=== PATIENT | male | born 1980 | race Caucasian/White ===

== ENCOUNTER 2017-03-05 20:01 | Emergency (ER) | payer OTHER ==
[~2017-03-05] VITALS: Ht 185.4 cm; Wt 104.0 kg
--- NOTE | 2017-03-05 20:19 | PHYS DOC ---
Adult General Chief Complaint Chief Complaint: HYPERTENSION HPI HPI Patient is a 36 year old M who presents with headache and chest pain. Patient states for the past 2 weeks he's had elevated blood pressures with associated headaches and chest pain off and on. Patient states today's chest pain got worse central in nature nonradiating. Patient denies any shortness of breath. Patient denies any fevers. Patient states he smokes however denies any diabetes , hyperlipidemia, history of DVTs and borderline hypertension Review of Systems Review of Systems GEN: Denies fevers, chills, sweats HEENT: Denies blurred vision, sore throat CV: chest pain RESP: Denies shortness of air, cough GI: Denies n/v/d NEURO: Headache MSK: Denies weakness, joint pain/swelling Physical Exam Physical Exam GEN.: No apparent distress. Alert and oriented. HEENT: Head is normocephalic, atraumatic NECK: Supple. LUNGS: CTAB. HEART: RRR, S1, S2 present. Peripheral pulses intact ABDOMEN: Soft, nontender. Positive bowel sounds. EXTREMITIES: Without any cyanosis. NEUROLOGIC: Normal speech, normal tone PSYCHIATRIC: Normal affect, normal mood. SKIN: No ulcerations EKG EKG 2031: EKG shows normal sinus rhythm rate of 87 no STEMI [] Radiology/Procedures Radiology/Procedures CT head: NAD CTA chest: IMPRESSION: 1. No pulmonary embolism. 2. Left ventricular dilatation in a pattern suggesting apical dysmotility. Correlate with other clinical data. 3. Bronchial wall thickening indicates acute or chronic bronchitis. 4. Mild pulmonary edema versus atelectasis.[] Course & Med Decision Making Course & Med Decision Making Pertinent Labs and Imaging studies reviewed. (See chart for details) ED course: Patient was seen and examined upon arrival cardiac workup along with a CT angiogram the chest and CT of the head without contrast was ordered 2149: Updated patient on CT results and plan to admit 2202: Discussed CC/HP/PMH with Dr. Garrison and recommends transfer to [facility] for further cardiac workup 2210: Discussed CC/HP/PMH with Dr. Wing and recommends admit at [facility] with cardiology on consult [] Dragon Disclaimer Dragon Disclaimer This chart was dictated in whole or in part using Voice Recognition software in a busy, high-work load, and often noisy Emergency Department environment. It may contain unintended and wholly unrecognized errors or omissions. Departure Departure: Impression: Primary Impression: Chest pain Additional Impression: Dilated cardiomyopathy Disposition: 02 XFER SHT-TRM HOSP Admitting Physician: Other (Dr. Wing) Condition: STABLE Problem Qualifiers Primary Impression: Chest pain Chest pain type: unspecified Qualified Codes: R07.9 - Chest pain, unspecified FAWN BRUCE DO Mar 05, 2017 20:19
[2017-03-05 20:41] VITALS: BP 162/101
[2017-03-05 20:52] LABS: BASO # 0.1 x10^3/uL (0.0-0.2); BASO % 1 % (0-3); EOS # 0.2 x10^3/uL (0.0-0.7); EOS % 2 % (0-3); HEMATOCRIT 43.9 % (39.0-53.0); HEMOGLOBIN 15.3 g/dL (13.0-17.5); LYMPH # 2.3 x10^3/uL (1.0-4.8); LYMPH % 24 % (24-48); MEAN CORPUSCULAR HEMOGLOBIN 29 pg (25-35); MEAN CORPUSCULAR HGB CONC 35 g/dL (31-37); MEAN CORPUSCULAR VOLUME 84 fL (79-100); MONO # 0.6 x10^3/uL (0.0-1.1); MONO % 6 % (0-9); NEUT # 6.5 x10^3uL (1.8-7.7); NEUT % 67 % (31-73); PLATELET COUNT 227 x10^3/uL (140-400); RED BLOOD COUNT 5.23 x10^6/uL (4.30-5.70); RED CELL DISTRIBUTION WIDTH 13.1 % (11.5-14.5); WHITE BLOOD COUNT 9.6 x10^3/uL (4.0-11.0)
[2017-03-05] MEDS ORDERED: IOHEXOL 300 MG/ML 75 ML VIAL. IV ONE (21:00)
[2017-03-05 21:13] LABS: ALBUMIN 3.8 g/dL (3.4-5.0); ALBUMIN/GLOBULIN RATIO 1.1 (1.0-1.7); CALCIUM 8.6 mg/dL (8.5-10.1); CREATININE 0.9 mg/dL (0.7-1.3); GFR 96.6; POTASSIUM 3.8 mmol/L (3.5-5.1); TOTAL BILIRUBIN 0.4 mg/dL (0.2-1.0); TOTAL PROTEIN 7.2 g/dL (6.4-8.2)
--- NOTE | 2017-03-05 21:15 | EKG ---
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
--- NOTE | 2017-03-05 21:40 | RAD ---
EXAM: CT HEAD WITHOUT CONTRAST. HISTORY: Headache, hypertension. TECHNIQUE: Computed tomography of the head was performed without intravenous contrast. COMPARISON: None. FINDINGS: There is no intracranial hemorrhage. Santana-white differentiation is preserved. The ventricles are normal in size and position. There is mild mucosal thickening in the ethmoid air cells. The orbits are unremarkable. The temporal bones are unremarkable. The calvarium reveals no suspicious lesions. IMPRESSION: 1. No acute intracranial findings. *One or more of the following individualized dose reduction techniques were utilized for this examination: 1. Automated exposure control. 2. Adjustment of the mA and/or kV according to patient size. 3. Use of iterative reconstruction technique. Electronically signed by: Catia Stein MD (03/05/2017 9:37 PM) [facility]
--- NOTE | 2017-03-05 21:52 | RAD ---
EXAM: CT ANGIOGRAPHY OF THE CHEST WITH AND WITHOUT INTRAVENOUS CONTRAST. HISTORY: Chest pain, smoking history. TECHNIQUE: Computed tomographic angiography of the chest was performed before and after the intravenous administration of 75 mL Omnipaque 300. 3-D maximum intensity projections were also performed. COMPARISON: None. FINDINGS: Images of the upper abdomen reveal no acute abnormality. Bone windows reveal no suspicious lesions. No pulmonary emboli are identified. There is no aortic dissection or aneurysm. There are no pathologically enlarged mediastinal or axillary lymph nodes. There is no pleural or pericardial effusion. The left ventricle is dilated in a pattern suggesting apical dysmotility. Bronchial wall thickening indicates acute or chronic bronchitis. There is mild dependent atelectasis versus trace pulmonary edema. IMPRESSION: 1. No pulmonary embolism. 2. Left ventricular dilatation in a pattern suggesting apical dysmotility. Correlate with other clinical data. 3. Bronchial wall thickening indicates acute or chronic bronchitis. 4. Mild pulmonary edema versus atelectasis. *One or more of the following individualized dose reduction techniques were utilized for this examination: 1. Automated exposure control. 2. Adjustment of the mA and/or kV according to patient size. 3. Use of iterative reconstruction technique. Electronically signed by: Catia Stein MD (03/05/2017 9:49 PM) [facility]
== END 2017-03-06 00:22 | disposition short-term general hospital (02) ==
LOC: ER 20:01
DX: I42.0 Dilated cardiomyopathy (principal); R51 Headache; F17.200 Nicotine dependence, unspecified, uncomplicated
CPT/HCPCS: 36415; 70450; 71275; 80053; 84484; 85027; 93005; 99285; Q9967

== ENCOUNTER 2021-02-18 05:33 | Emergency (ER) | payer OTHER ==
[2021-02-18] MEDS ORDERED: ASPIRIN 325 MG TABLET ONE (06:22)
[2021-02-18 08:46] LABS: BASO # 0.1 x10^3/uL (0.0-0.2); BASO % 1 % (0-3); EOS # 0.2 x10^3/uL (0.0-0.7); EOS % 3 % (0-3); HEMATOCRIT 45.4 % (39.0-53.0); HEMOGLOBIN 15.6 g/dL (13.0-17.5); LYMPH # 2.4 x10^3/uL (1.0-4.8); LYMPH % 29 % (24-48); MEAN CORPUSCULAR HEMOGLOBIN 29 pg (25-35); MEAN CORPUSCULAR HGB CONC 34 g/dL (31-37); MEAN CORPUSCULAR VOLUME 85 fL (79-100); MONO # 0.8 x10^3/uL (0.0-1.1); MONO % 9 % (0-9); NEUT # 4.9 x10^3uL (1.8-7.7); NEUT % 59 % (31-73); PLATELET COUNT 237 x10^3/uL (140-400); RED BLOOD COUNT 5.33 x10^6/uL (4.30-5.70); RED CELL DISTRIBUTION WIDTH 13.3 % (11.5-14.5); WHITE BLOOD COUNT 8.3 x10^3/uL (4.0-11.0)
[2021-02-18 08:48] LABS: ALBUMIN 3.7 g/dL (3.4-5.0); ALBUMIN/GLOBULIN RATIO 1.1 (1.0-1.7); CALCIUM 8.5 mg/dL (8.5-10.1); CREATININE 0.8 mg/dL (0.7-1.3); GFR 108.2; POTASSIUM 4.1 mmol/L (3.5-5.1); TOTAL BILIRUBIN 0.5 mg/dL (0.2-1.0); TOTAL PROTEIN 7.2 g/dL (6.4-8.2)
--- NOTE | 2021-02-18 09:03 | RAD ---
Exam Date: 02/18/2021 6:19 AM XR CHEST 1V Indication: Reason: CHEST PAIN / Spl. Instructions: / History: . FINDINGS/ IMPRESSION: The cardiac silhouette and pulmonary vasculature are within normal limits. There is no focal consolidation, pleural effusion or pneumothorax. The visualized osseous structures are intact. Electronically signed by: Sylvester Dc MD (02/18/2021 9:00 AM) [id number]
--- NOTE | 2021-02-19 07:01 | EKG ---
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
--- NOTE | 2021-02-21 21:01 | EKG ---
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
== END 2021-02-18 08:00 | disposition home or self-care (01) ==
LOC: ER 05:33
DX: R07.89 Other chest pain (principal); E03.9 Hypothyroidism, unspecified; Z88.2 Allergy status to sulfonamides
CPT/HCPCS: 36415; 71045; 80053; 83880; 84484; 85025; 93005; 99285